=== PATIENT | male | born 1970 | race African-American/Black ===

== ENCOUNTER 2024-03-07 08:29 | Outpatient (AMB) | payer MEDICAID, SELFPAY ==
[2024-03-07 08:40] VITALS: BP 112/66; PULSE 67; BMI 36.4
--- NOTE | 2024-03-07 08:40 | A.OFFVIS_ITS ---
Vital Signs 03/07/24 08:40 Height 5 ft 6 in Weight 225 lb 8.526 oz BMI 36.4 BP 112/66 Blood Pressure Location Rt brachial Position Sitting Pulse 67 Pulse Source Pulse Oximeter Intake Visit Reasons: + CHARLES/lm Intake Note: New patient referred by PCP present today for positive CHARLES. C/O stiffness and swelling on hands. 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 Accompanied by: Self / Same As Patient Allergies No Known Allergies [No Known Allergies*] Allergy (Verified 03/07/24 08:43) Medication List - Last Reconciled 03/07/24 by No Andrade MD acetaminophen 500 mg PO Q6H PRN albuterol sulfate 90 mcg/actuation (Ventolin HFA) 2 puffs inhalation Q6H PRN ammonium lactate 12% topical BID aspirin 81 mg PO DAILY atorvastatin 20 mg PO DAILY baclofen 10 mg PO BID cholecalciferol (vitamin D3) 25 mcg PO DAILY clonazepam 1 mg PO TID empagliflozin (Jardiance) 10 mg PO QAM hydrochlorothiazide 25 mg PO DAILY hydroxyzine pamoate 50 mg PO BEDTIME PRN levocetirizine 5 mg PO QPM loratadine 10 mg PO DAILY melatonin 5 mg PO BEDTIME metoprolol succinate ER 25 mg PO DAILY naproxen 500 mg PO DAILY nicotine (polacrilex) mg PO omeprazole 20 mg PO BID prazosin 1 mg PO BEDTIME prednisone 3 mg PO DAILY pregabalin 150 mg PO BID HPI Comments Details: This is a 53-year-old male who presents for evaluation of diffuse pain. Patient stated that he started having joint pains in his hands, wrists, knees, elbows, shoulders. Associated with intermittent swelling. Significant stiffness especially in the middle of the night. Morning stiffness lasting hours. He was evaluated by Dr. Andrade. He saw Dr. Andrade for about a year, he was prescribed prednisone with good results, when prednisone was tapered he would have recurrent symptoms, he was restarted on prednisone but it did not work as well. I do not have records from Dr. Andrade. And he was started on pregabalin by his PCP. His CHARLES has been positive. Patient has any skin rashes, denies any fevers or weight loss. He has history of CAD s/p 2 stents. This was around 2015. He denies any history of DVT/PE. He is unaware of any family history of an autoimmune rheumatic disease. PFSH Medical History Presence of stent in coronary artery in patient with coronary artery disease Major depressive disorder, recurrent, unspecified Body mass index [BMI] 35.0-35.9, adult Other obesity Secondary hyperparathyroidism of renal origin Chronic kidney disease, stage 3 unspecified Nicotine dependence Cocaine abuse Male erectile disorder Inflammatory polyarthropathy Surgical History History of surgery of head History of hip surgery Family History Mother No known health problems Social History Alcohol intake: former Patient Tobacco Use Status: Current everyday Tobacco user Review of Systems Const Denies fever(s), Reports headache(s) and Denies weight loss ENT Reports headache(s) Card Reports dyspnea Resp Reports dyspnea and Reports wheezing Musc Reports arthralgias, Reports joint swelling and Reports stiffness Skin/Breast Reports unusual bruising Neuro Reports headache(s) Psych Reports abnormal sleep pattern, Reports anxiety and Reports depression Aller/Immun Reports wheezing Physical Exam Vital Signs: Last Vital Signs Pulse 67 03/07/24 08:40 BP 112/66 03/07/24 08:40 BMI result Body Mass Index 36.4 Const General: cooperative, healthy appearing and comfortable Nutritional Appearance: obese Orientation/consciousness: patient oriented x3 Limitations: no limitations HEENT Head: Yes normocephalic and Yes atraumatic Mouth: moist mucous membranes Resp Effort & Inspection: normal respiratory effort and able to speak in complete sentences Auscultation: clear to auscultation bilaterally Cardio Rate: regular rate Neuro General: patient oriented x3 Extrem Other: Diffuse puffiness of MCPs but, fingers, Mildly cool hands Few tender MTPs left foot Normal range of motion of shoulders but with stiffness Normal nailfold capillaroscopy Results Reviewed Results Reviewed: CHARLES [id number] speckled RF negative Assessment & Plan Assessment & Plan (1) CHARLES positive: Code(s): R76.8 - Other specified abnormal immunological findings in serum Category: Medical Plan: This is a 53-year-old male who presents for evaluation of a positive CHARLES in the setting of was joint pain responsive to prednisone. Clinical picture suspicious for an inflammatory arthritis. I will order comprehensive serology to screen for underlying autoimmune rheumatic disease. Check x-rays of involved joints. Follow-up in about 6 weeks Plan I spent 48 minutes reviewing patient's chart, evaluating patient, ordering diagnostic workup, counseling patient and documenting in the chart Orders: Orders CHARLES Reflex Titer and Pattern Today M32.9 - Systemic lupus erythematosus, unspecified Anti Extractable Nuclear Ag Today M32.9 - Systemic lupus erythematosus, unspecified Anti DNA DS Antibody Today M32.9 - Systemic lupus erythematosus, unspecified C Reactive Protein Today M32.9 - Systemic lupus erythematosus, unspecified DNA Double Stranded-Crithidia Today M32.9 - Systemic lupus erythematosus, unspecified Protein Creatinine Ratio, Ur Today M32.9 - Systemic lupus erythematosus, unspecified Sjogren's Antibodies Today M32.9 - Systemic lupus erythematosus, unspecified UA w Microscopic Today M32.9 - Systemic lupus erythematosus, unspecified Complete Blood Count Auto Diff Today I01.1 - Acute rheumatic endocarditis T Spot TB Today Z11.7 - Encounter for testing for latent tuberculosis infection HIV Ab/Ag Today Z11.59 - Encounter for screening for other viral diseases Cyclic Citrullinated Peptide Today I01.1 - Acute rheumatic endocarditis XR hand wrist RT Today M06.9 - Rheumatoid arthritis, unspecified XR foot LT min 3V Today M06.9 - Rheumatoid arthritis, unspecified XR foot RT min 3V Today M06.9 - Rheumatoid arthritis, unspecified Complement C3 Today M32.9 - Systemic lupus erythematosus, unspecified Complement C4 Today M32.9 - Systemic lupus erythematosus, unspecified Erythrocyte Sedimentation Rate Today M32.9 - Systemic lupus erythematosus, unspecified Comprehensive Met. Panel Today I01.1 - Acute rheumatic endocarditis Creatine Kinase Total Today I01.1 - Acute rheumatic endocarditis Hepatitis A,B,C Profile Today Z11.59 - Encounter for screening for other viral diseases Immunofixation Pnl, Serum Today I01.1 - Acute rheumatic endocarditis Protein Electrophoresis, Serum Today I01.1 - Acute rheumatic endocarditis Rheumatoid Factor Today I01.1 - Acute rheumatic endocarditis Scleroderma 12 Panel Today M34.9 - Systemic sclerosis, unspecified HLA B27 Today M45.9 - Ankylosing spondylitis of unspecified sites in spine XR hand wrist LT Today M06.9 - Rheumatoid arthritis, unspecified Coding Level of Care Code New Pt Level 4 (18437) Diagnoses CHARLES positive R76.8
== END 2024-03-07 09:08 | disposition home or self-care (01) ==
PROVIDERS: PCP Internal Medicine; Visit Provider Student in an Organized Health Care Education/Training Program
DX: R76.8 Other specified abnormal immunological findings in serum (principal)
CPT/HCPCS: 99204

== ENCOUNTER → 2024-03-07 08:29 | Outpatient (BNVA) | payer MEDICAID, SELFPAY | PROVIDERS: PCP Internal Medicine; Visit Provider Student in an Organized Health Care Education/Training Program | DX: M32.9 Systemic lupus erythematosus, unspecified (principal); M45.9 Ankylosing spondylitis of unspecified sites in spine; M06.9 Rheumatoid arthritis, unspecified; M34.9 Systemic sclerosis, unspecified; R76.8 Other specified abnormal immunological findings in serum; I01.1 Acute rheumatic endocarditis | CPT/HCPCS: 99202 ==

== ENCOUNTER 2024-08-17 11:02 | Emergency (ER) | payer MEDICAID, SELFPAY ==
--- NOTE | ~2024-08-17 | XR_ITS ---
CLINICAL HISTORY: necrotic right 3rd digit 3 views right 3rd digit including PA hand Comparison: None Findings: No fracture subluxations or dislocations. Joint intervals are preserved. No marginal erosions or overhanging osteophytes. No radiopaque foreign body. No soft tissue gas. Impression: 1. No periostitis or bony destruction demonstrated. No soft tissue gas. This document has been electronically signed by: Yaniv Linton MD on 08/17/2024 12:07:31
--- OUTSIDE RECORDS SUMMARY | 2024-08-17 11:05 | XMS_ITS | Patient Health Record ---
Author Organization [facility] Address [address], [place] [id number] Care Team Providers Care [employer] Tr[employer] Worker Name Role Phone Theo Regina Primary Care Provider [facility], Nursing Unavailable [phone] CasionXiomy soteloza Unavailable [phone] Allergies No Known Allergies Results Component Value Reference Range Notes ANTI-NUCLEAR ANTIBODY Reviewed date:09/26/2023 06:28:49 PM Interpretation:1:2560 Performing Lab: Notes/Report: Original Ordering Provider: REGINA VENEGAS MD [email or web address], a member of [address] [address] Plastic Design Applier - Anastasia Mendez MD ANTI-NUCLEAR ANTIBODY SCREEN POSITIVE NEGATIVE ANTI-NUCLEAR ANTIBODY TITER >=1:2560 <1:160 ANTI-NUCLEAR ANTIBODY PATTERN SPECKLED May be associated with SLE, Sjogren's syndrome and mixed connective tissue disorder (MCTD) CHARLES COMMENTS SPEC RECOMMENDATION: If clinical suspicion of SJogren's syndrome consider testing for anti-Ro/SSA and anti-La/SSB. If clinical suspicion of mixed connective tissue disease consider testing for anti-SKIN CARVER. CALCIUM Reviewed date:09/22/2023 09:55:06 AM Interpretation:Normal Performing Lab: Notes/Report: Original Ordering Provider: REGINA VENEGAS MD CALCIUM 9.2 8.5-10.5 mg/dL PTH RELATED PROTEIN Reviewed date:10/18/2023 12:49:10 PM Interpretation:Normal Performing Lab: Notes/Report: Original Ordering Provider: REGINA VENEGAS MD [email or web address], a member of [address] [address] [employer] Design Applier - Anastasia Mendez MD PTH RELATED PROTEIN 14 11-20 pg/mL This is a C-terminal PTH-RP assay. PTH-RP is useful in the differential diagnosis of hypercalcemia and levels may be elevated in patients with tumor-associated hypercalcemia. Elevated results may also be observed in patients with renal disease. This test was developed and its analytical performance characteristics have been determined by [facility]. It has not been cleared or approved by FDA. This assay has been validated pursuant to the CLIA regulations and is used for clinical purposes. Test Performed at: [facility] [address] [address] Giovanna Dodd MD, PhD, SARAH URINE TP CREAT RATIO Reviewed date:10/29/2023 02:21:42 PM Interpretation:TNP Performing Lab: Notes/Report: 09/24/23--SHL Original Ordering Provider: REGINA VENEGAS MD [email or web address], [place] [address] [employer]astic Design Applier - Anastasia Mendez MD CREATININE, RANDOM URINE TNP Testing not performed Reason: WRONG SPECIMEN TYPE SUBMITTED URINALYSIS Reviewed date:12/26/2023 05:09:56 PM Interpretation:Leukocytes Performing Lab: Notes/Report: Original Ordering Provider: REGINA VENEGAS MD [email or web address] [address] [employer]astic Design Applier - Anastasia Mendez MD GLUCOSE, (UA) NEGATIVE NEGATIVE mg/dL BILIRUBIN, URINE NEGATIVE NEGATIVE KETONE, URINE 15 NEGATIVE mg/dL SPECIFIC GRAVITY, URINE 1.011 1.003-1.030 BLOOD, URINE TRACE NEGATIVE PH, URINE 6.0 5.0-8.0 PROTEIN, URINE 100 <= TRACE mg/dl UROBILINOGEN, URINE 1.0 0.2-1.0 E.U./dL NITRITE, URINE POSITIVE NEGATIVE LEUKOCYTE ESTERASE, URINE MODERATE NEGATIVE RBC, URINE 3 0-4 /HPF WBC, URINE 78 0-4 /HPF EPITH CELLS, URINE 19 0-60 /LPF BACTERIA, URINE HEAVY NEGATIVE HYALINE CAST, URINE 3 0-3 /LPF ANTI-DNA Reviewed date:03/11/2024 03:00:02 PM Interpretation:Negative Performing Lab: Notes/Report: ANTI-DNA QUANTITATIVE 33 <200 IU/mL ANTI-DNA INTERPRETATION NEGATIVE NEGATIVE ANTI-NUCLEAR ANTIBODY Reviewed date:03/11/2024 05:22:15 PM Interpretation:>1:2560 Performing Lab: Notes/Report: Original Ordering Provider: REGINA VENEGAS MD ANTI-NUCLEAR ANTIBODY SCREEN POSITIVE NEGATIVE ANTI-NUCLEAR ANTIBODY TITER >=1:2560 <1:160 ANTI-NUCLEAR ANTIBODY PATTERN SPECKLED May be associated with SLE, Sjogren's syndrome and mixed connective tissue disorder (MCTD) CHARLES COMMENTS SPEC RECOMMENDATION: If clinical suspicion of SJogren's syndrome consider testing for anti-Ro/SSA and anti-La/SSB. If clinical suspicion of mixed connective tissue disease consider testing for anti-SKIN CARVER. SJOGRENS ANTIBODIES Reviewed date:03/11/2024 02:59:54 PM Interpretation:Negative Performing Lab: Notes/Report: SSA ANTIBODY QUANT 3 <20 UNITS SSA ANTIBODY NEGATIVE NEGATIVE SSB ANTIBODY QUANT 2 <20 UNITS SSB ANTIBODY NEGATIVE NEGATIVE COMPLEMENT C3 Reviewed date:03/07/2024 10:00:20 PM Interpretation:Normal Performing Lab: Notes/Report: COMPLEMENT C3 130 88-201 mg/dl COMPLEMENT C4 Reviewed date:03/07/2024 10:01:01 PM Interpretation:Normal Performing Lab: Notes/Report: COMPLEMENT C4 34 16-47 mg/dl CBC WITH AUTO DIFF Reviewed date:03/11/2024 02:59:36 PM Interpretation:WBC 3.7 Performing Lab: Notes/Report: WBC 3.7 4.8-10.8 x10-3/uL RBC 5.2 4.5-5.5 x10-6/uL HEMOGLOBIN 14.8 13.5-17.5 g/dL HEMATOCRIT 45.7 42-54 % MCV 88.2 79-98 fL MCH 28.6 27-32 pg MCHC 32.4 32-37 g/dL RDW 15.0 11-15 % PLT COUNT 199 130-400 x10-3/uL MEAN PLATELET VOLUME 12.2 7-11 fL NRBC % AUTO 0.0 <1 % NEUT % 63.1 LYMPH % 24.9 MONO % 8.0 EOS % 3.2 BASO % 0.5 IMMATURE GRANULOCYTES % 0.3 NRBC # AUTO 0.00 <0.1 x10-3/uL ABSOLUTE NEUT 2.36 1.5-7.0 x10-3/uL LYMPH # 0.93 1-5.0 x10-3/uL MONO # 0.30 0.2-1.0 x10-3/uL EOS # 0.12 0-0.5 x10-3/uL BASO # 0.02 0-0.2 x10-3/uL IMMATURE GRANULOCYTES # 0.01 0-0.03 x10-3/uL CYCLIC CITRULLINATED PEPTIDE Reviewed date:03/11/2024 03:00:34 PM Interpretation:Negative Performing Lab: Notes/Report: CCP NEGATIVE NEGATIVE CCP QUANT 6 <20 UNITS CREATINE KINASE (CK) Reviewed date:03/07/2024 09:57:50 PM Interpretation:Normal Performing Lab: Notes/Report: CREATINE KINASE (CK) 169 22-269 U/L COMPREHENSIVE METABOLIC PANE L Reviewed date:03/11/2024 05:22:33 PM Interpretation:creat 1.9 Performing Lab: Notes/Report: Original Ordering Provider: REGINA VENEGAS MD GLUCOSE 93 70-100 mg/dL Reference range applicable to fasting specimens only BUN 16 5-25 mg/dL CREAT 1.95 0.7-1.3 mg/dL GLOMERULAR FILTRATION RATE 41 >60 This eGFR result was calculated using the CKD-EPI 2020 Creatinine Equation SODIUM 140 135-145 mEq/L POTASSIUM 4.2 3.5-5.5 mmol/L CHLORIDE 109 96-110 mmol/L CO2 25 21-32 mmol/L ANION GAP 6 3-11 CALCIUM 9.7 8.5-10.5 mg/dL TOTAL PROTEIN 8.3 6.0-8.0 G/dL ALBUMIN 3.9 3.2-5.0 G/dL BILI,TOTAL 0.4 0.0-1.4 mg/dL SGOT 24 10-42 U/L SGPT 32 10-60 U/L ALK PHOS 91 42-121 U/L C-REACTIVE PROTEIN Reviewed date:03/11/2024 03:00:25 PM Interpretation:0.7 Performing Lab: Notes/Report: C-REACTIVE PROTEIN 0.70 <0.5 mg/dl RICHARD ANTIBODIES Reviewed date:03/11/2024 03:50:19 PM Interpretation:SKIN CARVER pos; SM borderline Performing Lab: Notes/Report: ANTI SM QUANT 21 <20 UNITS SM ANTIBODY POSITIVE NEGATIVE ANTI SM/SKIN CARVER QUANT 138 <20 UNITS SKIN CARVER ANTIBODY POSITIVE NEGATIVE SERUM ELECTROPHORESIS Reviewed date:03/11/2024 03:00:10 PM Interpretation:Normal Performing Lab: Notes/Report: ALBUMIN- EP 3.9 2.9-4.1 g/dL ALPHA 1 GLOBULIN 0.3 0.1-0.5 g/dL ALPHA 2 GLOBULIN 1.1 0.7-1.5 g/dL BETA GLOBULIN 1.3 0.7-1.5 g/dL GAMMA GLOBULIN 1.8 0.7-1.9 g/dL EP INTERPRETATION Y Essentially normal pattern. No M-Amor seen. Reviewed by Dr. Mendez ESR Reviewed date:03/11/2024 03:50:10 PM Interpretation:61 Performing Lab: Notes/Report: ESR 61 0-20 mm/hr HEPATITIS A B C PROFILE Reviewed date:03/07/2024 09:59:13 PM Interpretation:A/B immune Performing Lab: Notes/Report: HEPATITIS B SURFACE ANTIGEN NEGATIVE NEGATIVE Over the counter supplements containing high doses of biotin may interfere with this assay. If interference is suspected, patients shoud be retested after refraining from biotin supplements for 72 hours. HEPATITIS B SURFACE ANTIBODY POSITIVE NEGATIVE HEPATITIS B CORE ANTIBODY NEGATIVE NEGATIVE HEPATITIS C VIRUS DIAGNOSTIC NEGATIVE NEGATIVE HEPATITIS A ANTIBODY TOTAL POSITIVE NEGATIVE Over the counter supplements containing high doses of biotin may interfere with this assay. If interference is suspected, patients shoud be retested after refraining from biotin supplements for 72 hours. HIV 1 AND 2 ANTIBODY SCREEN Reviewed date:03/07/2024 09:57:39 PM Interpretation:Negative Performing Lab: Notes/Report: HIV 1 AND 2 SCREEN NEGATIVE NEGATIVE This assay is a 4th generation assay allowing for earlier detection of HIV infection by detecting the presence of the HIV-1 p24 antigen as well as the traditional antibodies to HIV type 1 (including group O) and type 2. Use of a 4th generation assay is the current CDC recommendation for HIV screening. HLA-B27 ANTIGEN Reviewed date:03/10/2024 07:34:34 PM Interpretation:Negative Performing Lab: Notes/Report: Original Ordering Provider: REGINA VENEGAS MD [email or web address], [place] [address] Plastic Design Applier - Anastasia Mendez MD HLA-B27 NEGATIVE Test performed at [facility], [facility] [place] [address] IMMUNOFIX SERUM Reviewed date:03/11/2024 02:59:46 PM Interpretation:Negative Performing Lab: Notes/Report: [email or web address], a member of [address] [address] [employer]astic [employer] Applier - Anastasia Mendez MD IMMUNOFIX SERUM NO MONOCLONAL No monoclon al immunoglobulins detected. PHOSPHORUS Reviewed date:03/07/2024 09:58:27 PM Interpretation:Normal Performing Lab: Notes/Report: PHOSPHORUS 2.8 2.5-4.5 mg/dL INTACT PTH Reviewed date:03/07/2024 09:59:40 PM Interpretation:Normal Performing Lab: Notes/Report: INTACT PTH 87 18-88 pg/mL SCL-70 (SCLERODERMA) ANTIBOD Y Reviewed date:03/11/2024 03:00:17 PM Interpretation:Negative Performing Lab: Notes/Report: SCL-70 (SCLERODERMA) ANTIBODY NEGATIVE NEGATIVE URINE TP CREAT RATIO Reviewed date:03/11/2024 03:50:01 PM Interpretation:1.2 Performing Lab: Notes/Report: CREATININE, RANDOM URINE 73 TOTAL PROTEIN, RANDOM URINE 88 TP CREAT RATIO 1.21 0-0.2 VITAMIN D, 25-HYDROXY Reviewed date:03/07/2024 10:00:09 PM Interpretation:Normal Performing Lab: Notes/Report: VITAMIN D, 25-HYDROXY 38 30-80 ng/mL QUANTIFERON(R)-TB GOLD PLUS, 1 TUBE Reviewed date:03/11/2024 02:47:29 PM Interpretation:Negative Performing Lab:NL2, [facility] [id number] Vikas Mallory Notes/Report: NON-FASTING QUANTIFERON(R)-TB GOLD PLUS, 1 TUBE NEGATIVE NEGATIVE Negative test result. M. tuberculosis complex infection unlikely. NIL 0.01 MITOGEN-NIL 9.37 TB1-NIL 0.00 TB2-NIL 0.01 The Nil tube value reflects the background interferon gamma immune response of the patient's blood sample. This value has been subtracted from the patient's displayed TB and Mitogen results. Lower than expected results with the Mitogen tube prevent false-negative Quantiferon readings by detecting a patient with a potential immune suppressive condition and/or suboptimal pre-analytical specimen handling. The TB1 Antigen tube is coated with the M. tuberculosis-specific antigens designed to elicit responses from TB antigen primed CD4+ helper T-lymphocytes. The TB2 Antigen tube is coated with the M. tuberculosis-specific antigens designed to elicit responses from TB antigen primed CD4+ helper and CD8+ cytotoxic T-lymphocytes. For additional information, please refer to https://education.Storehouse/faq/FAQ 204 (This link is being provided for informational/ educational purposes only.) URINALYSIS Reviewed date:05/09/2024 09:28:28 AM Interpretation:Abnormal Performing Lab: Notes/Report: Original Ordering Provider: YAMIL JACKSON APRN [email or web address], [place] [address] Plastic Design Applier - Anastasia Mendez MD GLUCOSE, (UA) >=1000 NEGATIVE mg/dL BILIRUBIN, URINE NEGATIVE NEGATIVE KETONE, URINE NEGATIVE NEGATIVE mg/dL SPECIFIC GRAVITY, URINE 1.014 1.003-1.030 BLOOD, URINE SMALL NEGATIVE PH, URINE 5.5 5.0-8.0 PROTEIN, URINE 100 <= TRACE mg/dl UROBILINOGEN, URINE 0.2 0.2-1.0 E.U./dL NITRITE, URINE POSITIVE NEGATIVE LEUKOCYTE ESTERASE, URINE LARGE NEGATIVE RBC, URINE 7 0-4 /HPF WBC, URINE 473 0-4 /HPF EPITH CELLS, URINE 15 0-60 /LPF BACTERIA, URINE HEAVY NEGATIVE HYALINE CAST, URINE 2 0-3 /LPF MICROALB/CREAT RATIO, RANDOM Reviewed date:05/09/2024 09:27:13 AM Interpretation:Abnormal Performing Lab: Notes/Report: Original Ordering Provider: YAMIL JACKSON APRN [email or web address], [place] [address] [employer]astic Design Applier - Anastasia Mendez MD MICROALBUMIN, RANDOM 239.0 0.0-29.0 mg/L MICROALB/CRE RATIO RANDOM 373.4 0.0-30.0 mg/G CREATININE, RANDOM URINE 64 URINE CULTURE Reviewed date:05/14/2024 03:04:54 PM Interpretation:+UTI Performing Lab: Notes/Report: Original Ordering Provider: YAMIL JACKSON APRN Specimen Source: URINE Collected: May 08, 2024 09:53 [email or web address], a member of [facility] Organism: ESCHERICHIA COLI [address] [place] [address] Antibiotics EFRAÍN Interpretation Plastic Design Applier - Anastasia Mendez MD TRIMETHOPRIM/SULFAMETHOXAZOLE <=20 Sensitive AMOXICILLIN/CLAVULANIC ACID 16 Intermediate AMPICILLIN/SULBACTAM >=32 Resistant CEFAZOLIN,URINE >=32 Resistant CEFOXITIN <=4 Sensitive CEFTAZIDIME <=0.5 Sensitive CEFTRIAXONE <=0.25 Sensitive CEFEPIME <=0.12 Sensitive CIPROFLOXACIN <=0.06 Sensitive GENTAMICIN <=1 Sensitive LEVOFLOXACIN <=0.12 Sensitive MEROPENEM <=0.25 Sensitive NITROFURANTOIN <=16 Sensitive AMIKACIN 2 Sensitive PIPERACILLIN/TAZOBACTAM 64 Resistant URINE CULTURE ESCHERICHIA COLI URINE CULTURE COLONY COUNT URINE CULTURE >100,000 BASIC METABOLIC PANEL (BMP) Reviewed date:01/25/2024 09:12:52 PM Interpretation:creat 1.87 Performing Lab: Notes/Report: Original Ordering Provider: REGINA VENEGAS MD GLUCOSE 113 70-100 mg/dL Reference range applicable to fasting specimens only BUN 21 5-25 mg/dL CREAT 1.87 0.7-1.3 mg/dL GLOMERULAR FILTRATION RATE 43 >60 This eGFR result was calculated using the CKD-EPI 2020 Creatinine Equation SODIUM 141 135-145 mEq/L POTASSIUM 4.1 3.5-5.5 mmol/L CHLORIDE 109 96-110 mmol/L CO2 25 21-32 mmol/L ANION GAP 7 3-11 CALCIUM 10.0 8.5-10.5 mg/dL HEPATITIS B SURFACE ANTIGEN Reviewed date:01/12/2024 08:04:57 AM Interpretation: Performing Lab: Notes/Report: [email or web address], a member of [facility] [address] Plastic Design Applier - Anastasia Mendez MD HEPATITIS B SURFACE ANTIGEN NEGATIVE NEGATIVE Over the counter supplements containing high doses of biotin may interfere with this assay. If interference is suspected, patients shoud be retested after refraining from biotin supplements for 72 hours. HEPATITIS A ANTIBODY IGM Reviewed date:03/07/2024 09:56:03 PM Interpretation:Negative Performing Lab: Notes/Report: [email or web address], [place] [address] Plastic Design Applier - Anastasia Mendez MD HEPATITIS A ANTIBODY IGM NEGATIVE NEGATIVE Over the counter supplements containing high doses of biotin may interfere with this assay. If interference is suspected, patients shoud be retested after refraining from biotin supplements for 72 hours. DANIELLE PATHOLOGIST REVIEW Reviewed date:03/12/2024 04:37:04 PM Interpretation: Performing Lab: Notes/Report: DANIELLE PATHOLOGIST REVIEW DR. MENDEZ IGA Reviewed date:03/07/2024 09:56:49 PM Interpretation:High Performing Lab: Notes/Report: IGA 516 61-348 mg/dL IGG Reviewed date:03/07/2024 09:56:34 PM Interpretation:High Performing Lab: Notes/Report: IGG 9004 249-3531 mg/dL IGM Reviewed date:03/07/2024 09:56:19 PM Interpretation:Normal Performing Lab: Notes/Report: IGM 80 23-259 mg/dL UA WITH CULTURE IF INDICATED Reviewed date:03/09/2024 02:21:30 PM Interpretation:Abnormal Performing Lab: Notes/Report: Original Ordering Provider: REGINA VENEGAS MD GLUCOSE, (UA) 500 NEGATIVE mg/dL BILIRUBIN, URINE NEGATIVE NEGATIVE KETONE, URINE NEGATIVE NEGATIVE mg/dL SPECIFIC GRAVITY, URINE 1.014 1.003-1.030 BLOOD, URINE SMALL NEGATIVE PH, URINE 6.5 5.0-8.0 PROTEIN, URINE 100 <= TRACE mg/dl UROBILINOGEN, URINE 1.0 0.2-1.0 E.U./dL NITRITE, URINE POSITIVE NEGATIVE LEUKOCYTE ESTERASE, URINE LARGE NEGATIVE RBC, URINE 11 0-4 /HPF WBC, URINE 989 0-4 /HPF EPITH CELLS, URINE 8 0-60 /LPF BACTERIA, URINE HEAVY NEGATIVE HYALINE CAST, URINE 1 0-3 /LPF YEAST, URINE PRESENT URINE CULTURE Reviewed date:03/11/2024 03:49:50 PM Interpretation:Positive e.coli Performing Lab: Notes/Report: Original Ordering Provider: REGINA VENEGAS MD Specimen Source: URINE,CLEAN CATCH Collected: Mar 07, 2024 11:39 [email or web address], a member of [facility] Organism: ESCHERICHIA COLI [address] [place] [address] Antibiotics EFRAÍN Interpretation Plastic Design Applier - Anastasia Mendez MD TRIMETHOPRIM/SULFAMETHOXAZOLE <=20 Sensitive AMOXICILLIN/CLAVULANIC ACID >=32 Resistant AMPICILLIN/SULBACTAM >=32 Resistant CEFAZOLIN,URINE 16 Sensitive CEFOXITIN <=4 Sensitive CEFTAZIDIME <=0.5 Sensitive CEFTRIAXONE <=0.25 Sensitive CEFEPIME <=0.12 Sensitive CIPROFLOXACIN <=0.06 Sensitive GENTAMICIN <=1 Sensitive LEVOFLOXACIN <=0.12 Sensitive MEROPENEM <=0.25 Sensitive NITROFURANTOIN <=16 Sensitive AMIKACIN 2 Sensitive PIPERACILLIN/TAZOBACTAM >=128 Resistant URINE CULTURE ESCHERICHIA COLI URINE CULTURE COLONY COUNT URINE CULTURE >100,000 CR Hand RT 3 views Reviewed date:06/15/2024 10:02:31 AM Interpretation:Normal Performing Lab: Notes/Report: Normal CBC Reviewed date:06/15/2024 10:03:55 AM Interpretation:Normal Performing Lab: Notes/Report: Normal HEMATOCRIT 42 HEMOGLOBIN 14.0 MCV 86 PLT COUNT 217 WBC 7.1 COMPREHENSIVE METABOLIC PANE L Reviewed date:06/15/2024 10:05:42 AM Interpretation:Creat 1.65 Performing Lab: Notes/Report: Creat 1.65 ALBUMIN 4.1 ALK PHOS 98 SGPT 31 BILI,TOTAL 0.3 BUN 22 CALCIUM 9.5 CHLORIDE 105 CO2 21 CREAT 1.6 GLUCOSE 85 POTASSIUM 4.1 SODIUM 140 TOTAL PROTEIN 8.4 ESR Reviewed date:06/15/2024 10:06:49 AM Interpretation:94 Performing Lab: Notes/Report: 94 ESR 94 C-REACTIVE PROTEIN Reviewed date:06/15/2024 10:07:26 AM Interpretation:1.3 Performing Lab: Notes/Report: 1.3 C-REACTIVE PROTEIN 1.3 LIPID PANEL WITH REFLEX TO D IRECT LDL Reviewed date:07/18/2024 06:11:55 PM Interpretation:Normal Performing Lab: Notes/Report: Cholesterol 115 0-200 mg/dL Triglycerides 125 0-150 mg/dL HDL 33 >=40 mg/dL LDL Calculated 57 0-100 mg/dL VLDL Cholesterol Enmanuel 25 Non HDL Chol. (LDL+VLDL) 82 <145 mg/dL Chol/HDL Ratio 3.5 0.0-4.4 HEMOGLOBIN A1C Reviewed date:07/19/2024 10:04:38 AM Interpretation:Normal Performing Lab: Notes/Report: Hemoglobin A1C 5.6 <6.5 % Mean Bld Glu Estim. 114 Reason For Referral Reason Arthritis TReat ent CEnter ;ast seen 2020; presistent CHARLES 1:2560 with small joint pain andstuiffness and inability to get off prednisone ATC will not see client, too many no shows. Referral Organization [facility] Referring Provider First Name Regina Referring Provider Last Name Theo Referring Provider Speciality Internal M edicine Referred Provider Specialty Rheumatology General Notes Sharon Campos 2023 12:05:55 PM >Faxed to Beth AVELAR Monica 09/27/2023 03:11:42 PM >ATC will nor see client, too many no shows., Regina Venegas 09/27/2023 04:31:22 PM >Can we find anyonenesle MAybe the [facility]?, Lilli Lehman 10/25/2023 10:31:50 AM > Notes faxed to [facility] [phone] Referral Priority Routine Reason presistent CHARLES 1:256 0 with small joint pain andstuiffness and inability to get off prednisone [facility], [address] [place] [address] Dr. Garcia 304 Referral Organization [facility] Referring Provider First Name Regina Referring Provider Last Name Theo Referring Provider Speciality Internal M edicine Referred Provider Demar Magana Referred Provider Specialty Rheumatology General Notes Lilli Lehman 02/2024 10:39:26 AM > notes faxed to [facility] [phone]. [facility]- [id number] VISITS, Sharon Campos 10/30/2023 11:03:36 AM >Client called with appt, Lilli Lehman 11/23/2023 03:49:58 PM > phone number not in service, Lilli Lehman 12/04/2023 01:13:32 PM > pt nos to his appt, Theo Regina 12/04/2023 01:25:32 PM >i think that is because he is i drug rehab. Can yopu tarck him down and, if so, beg [facility] rheum to gibve him another chance pleae?, Lilli Lehman 12/04/2023 01:29:05 PM > I called him and he did not answer and no voice mail set up, Regina Venegas 12/04/2023 02:42:10 PM >Pretty much the usual.ry him once more tomorrow and then we wait, Lilli Lehman 12/24/2023 02:58:25 PM > I rescheduled pt to 02/26 @1:30 with Nicky Schwab DOCK B[employer], Tania Quiroga 02/22/2024 11:01:37 AM > Pt. reminded of this apt., Mariah Arias 02/28/2024 10:25:54 AM >pt. reminded of this apt, Tania Quiroga 03/11/2024 09:00:26 AM > pt did attended waiting for noteKimber Katelyn 03/12/2024 10:43:50 AM > left vm requesting Kimber maxwell Katelyn 03/12/2024 01:16:43 PM > note received and put to scan Referral Priority Routine Referral Appointment Date 03/07/2024 Reason [facility]. [address] [place] [address] , [address] P: [phone] F: [phone] PAtient who had paronychiua (I think) drained at [facility] ER a ty wray abnd now has black eschar tip 3rd finger right. Does this need debridement? Circulation seems OK and I do not sense new fluid colection Referral Organization [facility] Referring Provider First Name Regina Referring Provider Last Name Theo Referring Provider Speciality Internal edicine Referred Provider Specialty Hand Surgery General Notes Nydia Ayala 09/2023 08:49:48 AM > Faxed to Plastics, Tania Quiroga 07/28/2024 10:33:15 AM > can you see if the note is completed yet, spoke with [phone] Briana from [facility] who called about pt he thinks he needs to be on antibiotic still but the [facility] office said he needs to just apply the cream Clinical Notes Regina Venegas 07/28 10:49:54 PM >No antibiotics needed. Dry gangrene - topoical silvadene. May take months. But if the area has turned to wet gangrene then they should see hu again (prior to the 08/25/24 foilow up date Referral Priority Routine Referral Appointment Date 07/21/[address] London Paz [address] [place] [address] P:[phone] F: [phone] Thick nails and callouses Referral Organization [facility] Referring Provider First Name Regina Referring Provider Last Name Theo Referring Provider Speciality Internal edicine Referred Provider London Paz Referred Provider Specialty Podiatry - S urgical Chiropody General Notes Nydia Ayala 12/2023 03:11:16 PM > Faxed to Dr. 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) Referral Organization [facility] Referring Provider First Name Regina Referring Provider Last Name Theo Referring Provider Speciality Internal M edicine Referred Provider Giancarlo [facility] General Notes Tania Quiroga 08/01/2024 12:49:32 PM > faxed to [facility] Referral Priority Routine Medications Medication SIG (Take, Route, Frequency, Duration) Notes Start Date End Date Status Aspirin Low Dose 81 mg TAKE 1 TABLET BY MOUTH ONCE DAILY orally once a day for 90 days Active nicotine 21 mg/24 hr 1 PATCH transdermally once a day for 28 days 07/18/2024 Active clonazePAM 1 mg 1 tab(s) orally 3 times a day for anxiety; on or after 03/06/24 for 15 days 07/18/2024 Active Jardiance 25 mg 1 tab(s) orally once a day (in the morning) for 30 days Active naproxen 500 mg 1 tab(s) orally once a day for 30 days Active prazosin 1 mg 1 cap(s) orally daily at bedtime for 90 days Active atorvastatin 20 mg 1 tab(s) orally once a day for 90 days Active omeprazole 20 mg 1 cap(s) orally twice a day for 30 days Active Lyrica 150 mg 1 cap(s) orally 2 times a day; for 30 days 07/18/2024 Active Nicotrol NS 10 mg/mL 1 spray(s) in each nostril every hour as needed for 30 days replaces nicotrol due to supply issues 03/07/2024 Not-Taking Vistaril pamoate 25 mg 2 caps orally keith ly at bedtime prn for 30 days Active predniSONE 5 mg 1 tab(s) orally once a day for 30 days Active Anoro Ellipta 62.5 mcg-25 mcg/inh 1 puff(s) inhaled once a day for 30 days 05/08/2024 Active hydroCHLOROthiazide 25 mg 1 tab(s) orall y once a day for 30 days 12/25/2023 Active Eye Itch Relief 0.025% INSTILL 1 DROP IN TO AFFECTED EYE(S) EVERY 8 HOURS for 21 Not-Taking Ventolin HFA 90 mcg/inh INHALE TWO PUFFS BY MOUTH INTO THE LUNGS EVERY 6 HOURS as NEEDED FOR WHEEZING inhaled every 6 hours for 30 days Active Vitamin D3 25 mcg 1 tab(s) orally once a day for 90 days Active ammonium lactate topical 12% 1 willie applied topically to calluses on feet 2 times a day for 30 days Not-Taking Metoprolol Succinate ER 50 mg TAKE 1 TABLET BY MOUTH ONCE DAILY orally once a day for 90 days note dose chnage Active Cane-adjustable as directed Use for walking support prn 10/24/2019 Active acetaminophen-codeine 300 mg-30 mg 1 tab(s) orally every 8 hours as needed for finger pain for 7 days 08/01/2024 Active nitroglycerin 0.4 mg 1 tab(s) sublingually every 5 minutes x 3; if pain not relieved, call 911 last used 01/2024

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
--- OUTSIDE RECORDS SUMMARY | 2024-08-17 11:05 | XMS_ITS ---
Author Organization [facility] Address [address] [place] [phone] Care Team Providers Care School Photographs Detailer Name Role Phone William Venegas Primary Care Provider [phone] Social History Sex Assigned At : Social History Observation Description Sex Assigned At Male Encounters Encounter Location Date Provider Diagnosis [address] [phone] 07/30/2024 William Venegas Plan Of Treatment Next Appt Details Provider Name:William Venegas, 09/12/2024 08:40:00 AM, [address] [place] [address], [phone], Progress Notes * Michael GALLARDODOB:1970 (54 yo M)Acc No.[id number]:07/30/2024 Patient:AimeeCRISSYMichael :1970???Age:53 Y???Sex:Male Address:[address] [place] [phone] * * Date:?
[2024-08-17 11:06] VITALS: BP 154/70; PULSE 85; RESP 18; TEMP 37.1; O2SAT 100; BMI 37.7
--- NOTE | 2024-08-17 11:06 | ED_ITS ---
HPI - General Adult General Chief complaint: Extremity Problem Stated complaint: Infected finger Time Seen by Provider: 08/17/24 13:07 Source: patient, RN notes reviewed and old records reviewed Mode of arrival: ambulatory History of Present Illness ED Provider: Clarisse Keller PA-C HPI narrative: 54-year-old male with a past medical history of polysubstance use, depression, obesity, CKD, hyperparathyroidism, inflammatory polyarthralgia, presenting to the ED complaining of black/necrotic right middle finger x 1 month. States initially had I&D, subsequently developed black finger, states has seen hand specialist who recommended waiting for finger to fall off or shaving area off. Patient presenting today for increasing pain. Denies recent injury, trauma, fall, fever, chills, drainage from area. Related Data Home Medications ?Medication ?Instructions ?Recorded ?Confirmed acetaminophen 500 mg tablet 500 mg PO Q6H PRN 03/07/24 03/07/24 albuterol sulfate 90 mcg/actuation 2 puff inhalation Q6H PRN wheezing 03/07/24 03/07/24 aerosol inhaler (Ventolin HFA) ammonium lactate 12 % lotion topical BID 03/07/24 03/07/24 aspirin 81 mg tablet,delayed 81 mg PO DAILY 03/07/24 03/07/24 release atorvastatin 20 mg tablet 20 mg PO DAILY 03/07/24 03/07/24 baclofen 10 mg tablet 10 mg PO BID 03/07/24 03/07/24 cholecalciferol (vitamin D3) 25 25 mcg PO DAILY 03/07/24 03/07/24 mcg (1,000 unit) tablet clonazepam 1 mg tablet 1 mg PO TID anxiety 03/07/24 03/07/24 empagliflozin 10 mg tablet 10 mg PO QAM 03/07/24 03/07/24 (Jardiance) hydrochlorothiazide 25 mg tablet 25 mg PO DAILY 03/07/24 03/07/24 hydroxyzine pamoate 25 mg capsule 50 mg PO BEDTIME PRN 03/07/24 03/07/24 levocetirizine 5 mg tablet 5 mg PO QPM 03/07/24 03/07/24 loratadine 10 mg tablet 10 mg PO DAILY 03/07/24 03/07/24 melatonin 5 mg tablet 5 mg PO BEDTIME 03/07/24 03/07/24 metoprolol succinate 25 mg 25 mg PO DAILY 03/07/24 03/07/24 tablet,extended release 24 hr naproxen 500 mg tablet 500 mg PO DAILY 03/07/24 03/07/24 nicotine (polacrilex) 2 mg buccal mg PO 03/07/24 03/07/24 lozenge omeprazole 20 mg capsule,delayed 20 mg PO BID 03/07/24 03/07/24 release prazosin 1 mg capsule 1 mg PO BEDTIME 03/07/24 03/07/24 prednisone 1 mg tablet 3 mg PO DAILY 03/07/24 03/07/24 pregabalin 150 mg capsule 150 mg PO BID 03/07/24 03/07/24 Allergies Allergy/AdvReac Type Severity Reaction Status Date / Time No Known Allergies Allergy Verified 08/17/24 11:12 [No Known Allergies*] Review of Systems 2 Review of Systems: Yes all other systems are reviewed and are negative Constitutional: Constitutional: Reports as per [facility] Past Medical History Attestation statement: The following information was validated with the patient. Source: old records reviewed Medical History Presence of stent in coronary artery in patient with coronary artery disease Major depressive disorder, recurrent, unspecified Body mass index [BMI] 35.0-35.9, adult Other obesity Secondary hyperparathyroidism of renal origin Chronic kidney disease, stage 3 unspecified Nicotine dependence Cocaine abuse Male erectile disorder Inflammatory polyarthropathy Surgical History History of surgery of head History of hip surgery Family History Family History Mother No known health problems Social History Social History Alcohol intake: former Patient Tobacco Use Status: Current everyday Tobacco user Advance Directives: No Advance Directives Information Provided: No Physical Exam ED Vital Signs: Vital Signs - 24 hr 08/17/24 11:06 08/17/24 13:41 Temperature 98.8 F 98.4 F Pulse Rate 85 84 Respiratory Rate 18 16 Blood Pressure 154/70 H 154/88 H Pulse Oximetry 100 98 Oxygen Delivery Method Room Air Room Air BMI result Body Mass Index 37.7 Const General: cooperative, healthy appearing and no acute distress Orientation/consciousness: patient oriented x3 Limitations: no limitations HENMT Head: Yes normal to inspection and Yes atraumatic Ears: hearing grossly normal bilaterally General nose exam: Normal external nose present Face and sinus: Yes normal facial exam Eyes General: appearance normal, both eyes and all related structures EOM: EOMs intact bilaterally Neck Neck: Yes normal visual inspection and Yes no meningeal signs Resp Effort & Inspection: normal respiratory effort and no respiratory distress Cardio Rate: regular rate Skin Rashes: no rashes Neuro General: patient oriented x3, tone normal and no meningeal signs Cranial nerves: Yes CN's II-XII intact bilaterally Gait exam (Neuro): Normal gait present Extrem Other: Please refer to images above. Distal right 3rd digit with necrosis. No erythema. Nontender. No fluctuance or induration. Course Course Course Narrative: This is a Rapid Medical Examination (RME) performed by Seema Marmolejo PA-C in triage. Full HPI, ROS, assessment and treatment plan per primary provider in the Main ED. 54 yo male hx of polysubstance abuse, stage 3 CKD here for eval of of necrotic finger x months since I&D performed at [facility]. he has been in a program for approximately 1 month and has been unable to leave the program to seek medical attention. however, he does state that he has already followed up with hand specialist and multiple emergency departments - plan for the finger is unclear. Plan: labs, XR -no leukocytosis. Creatinine 1.9, BUN 28 > Known CKD however no prior labs to compare 3 views right 3rd digit including PA hand Impression: 1. No periostitis or bony destruction demonstrated. No soft tissue gas. > discussed with patient on this advertising copywriter's evaluation need to discuss with hand specialist/orthopedics, however recommendation is for admission. Patient states he will not do anything until he speaks with his doctor and his hand specialist. Patient worried about his program where he resides and states he needs to leave the emergency department by 02:00 o'clock. Patient is A&O x3, competent to make his own decisions, will sign out AMA. Risks discussed Medical Decision Making Medical Decision Making MDM Narrative: 54-year-old male with a past medical history of polysubstance use, depression, obesity, CKD, hyperparathyroidism, inflammatory polyarthralgia, presenting to the ED complaining of black/necrotic right middle finger x 1 month. On exam vital signs stable, NAD, please refer to images above of necrotic right middle finger. Concern for osteomyelitis and necrosis. No evidence of acute cellulitis. Plan: Labs and x-ray ordered in triage Please refer to course for remaining clinical decision making, interpretation of labs/imaging results, and discussions with consultants and/or family members. Differential Diagnosis Differential Diagnoses: The differential diagnosis associated with the presentation includes As above Admission/Observation Consideration of admission/observation: Escalation of care including admission/observation considered Lab Data MDM Lab Attestation statement: I reviewed the patient's lab results. 08/17/24 11:44 08/17/24 11:44 Labs: Lab Results 08/17/24 Range/Units 11:44 WBC 6.3 (4.8-10.8) X10*3/uL RBC 4.99 (4.60-5.80) X10*6/uL Hgb 14.2 (14.0-18.0) g/dl Hct 41.8 L (42.0-52.0) % MCV 83.8 (80.0-98.0) fL MCH 28.5 (27.0-33.0) pg MCHC 34.0 (31.0-36.0) g/dl RDW 14.6 (11.0-16.0) % Plt Count 245 (160-400) X10*3/uL MPV 10.3 (9.4-12.4) fL Immature Gran % (Auto) 0.3 (0.0-0.4) % Neut % (Auto) 75.3 H (45-73) % Lymph % (Auto) 16.1 L (20-40) % [place] % (Auto) 4.8 (2-11) % Eos % (Auto) 3.0 (0-4) % Baso % (Auto) 0.5 (0-2) % Lymph # (Auto) 1.0 L (1.2-4.9) X10*3/uL [place] # (Auto) 0.3 (0.1-1.2) X10*3/uL Eos # (Auto) 0.2 (0.0-0.4) X10*3/uL Baso # (Auto) 0.0 (0.0-0.2) X10*3/uL Abs Immat Gran (auto) 0.02 (0.00-0.03) X10*3/uL Absolute Neuts (auto) 4.7 (2.0-8.3) x10*3/uL Absolute Nucleated RBC 0.000 (0.0-0.012) X10*3/uL Nucleated RBC % (auto) 0.0 (0.0-0.2) /100WBC Sodium 140 (135-145) mmol/L Potassium 3.7 (3.3-5.1) mmol/L Chloride 106 (96-108) mmol/L Carbon Dioxide 22 (22-29) mmol/L Anion Gap 16 (12-20) BUN 28 H (9-16) mg/dL Creatinine 1.92 H (0.5-1.4) mg/dL Estim Creat Clear Calc 50.7 Estimated GFR 37 Random Glucose 103 (60-115) mg/dL Calcium 9.4 (8.4-10.2) mg/dL Total Bilirubin 0.2 (0.0-1.0) mg/dL AST 41 H (5-37) U/L ALT 27 (0-40) U/L Alkaline Phosphatase 73 (39-117) U/L C-Reactive Protein 0.53 H (< or = 0.50) mg/dL Total Protein 8.9 H (6.5-8.0) g/dL Albumin 4.2 (3.5-5.0) g/dL Independent Interpretation I performed an independent interpretation of an: Plain X-Ray Radiology Impression Discussion of test interpretation with radiology: I have reviewed the radiologist's reading. External Record Review External record reviewed: Inpatient record, Office record, Outpatient record, Prior outpatient labs, Prior outpatient radiology, Primary care record and Outside ED record Tests considered The following testing was considered but not selected: As above Prescription Management I considered prescription management with: Pain Medication and Antibiotic Chronic Conditions Patient?s care impacted by: Other Social Determinants Patient?s care significantly limited by Social Determinants of Health including: Inadequate housing, Low income, Alcoholism and drug addiction in family, Problems related to primary support group, Unemployment, Problems related to employment and Other Social Determinant of Health Discharge Plan Discharge Clinical Impression: Necrosis of finger Patient Disposition: Left Against Medical Advice Instructions: Gangrene (DC) Additional Instructions: You are leaving against medical advice. You are always welcome to return to the emergency department Your fingers necrotic. You need to follow-up with a hand specialist Prescriptions: No Action acetaminophen 500 mg tablet 500 mg PO Q6H PRN Jardiance 10 mg tablet 10 mg PO QAM prazosin 1 mg capsule 1 mg PO BEDTIME levocetirizine 5 mg tablet 5 mg PO QPM pregabalin 150 mg capsule 150 mg PO BID metoprolol succinate 25 mg tablet extended release 24 hr 25 mg PO DAILY aspirin 81 mg tablet,delayed release (DR/EC) 81 mg PO DAILY melatonin 5 mg tablet 5 mg PO BEDTIME hydroxyzine pamoate 25 mg capsule 50 mg PO BEDTIME PRN naproxen 500 mg tablet 500 mg PO DAILY clonazepam 1 mg tablet 1 mg PO TID cholecalciferol (vitamin D3) 25 mcg (1,000 unit) tablet 25 mcg PO DAILY albuterol sulfate [Ventolin HFA] 90 mcg/actuation HFA aerosol inhaler 2 puff inhalation Q6H PRN (Reason: wheezing) atorvastatin 20 mg tablet 20 mg PO DAILY omeprazole 20 mg capsule,delayed release(DR/EC) 20 mg PO BID nicotine (polacrilex) 2 mg lozenge PO prednisone 1 mg tablet 3 mg PO DAILY loratadine 10 mg tablet 10 mg PO DAILY baclofen 10 mg tablet 10 mg PO BID ammonium lactate 12 % lotion topical BID hydrochlorothiazide 25 mg tablet 25 mg PO DAILY Referrals: [facility] [Provider Group] - 1 day Stand Alone Forms: Against Medical Advice Print Language: Montenegrin
[2024-08-17 11:48] LABS: MANUAL DIFF FLAG NO
[2024-08-17 11:49] LABS: Basophils Percent Auto 0.5 % (0-2); Eosinophils Absolute Auto 0.2 X10*3/uL (0.0-0.4); Hematocrit 41.8 % (42.0-52.0); Hemoglobin 14.2 g/dl (14.0-18.0); Imm Gran Abs Auto 0.02 X10*3/uL (0.00-0.03); Imm Gran Pct Auto 0.3 % (0.0-0.4); Lymphocytes Percent Auto 16.1 % (20-40); Mean Corpuscular Hemoglobin 28.5 pg (27.0-33.0); Mean Corpuscular Volume 83.8 fL (80.0-98.0); Mean Platelet Volume 10.3 fL (9.4-12.4); Monocytes Absolute Auto 0.3 X10*3/uL (0.1-1.2); Monocytes Percent Auto 4.8 % (2-11); Neutrophils Absolute Auto 4.7 x10*3/uL (2.0-8.3); Neutrophils Percent Auto 75.3 % (45-73); Platelet Count 245 X10*3/uL (160-400); Red Blood Count 4.99 X10*6/uL (4.60-5.80); Red Cell Distribution Width 14.6 % (11.0-16.0); White Blood Count 6.3 X10*3/uL (4.8-10.8)
[2024-08-17 12:06] LABS: Alanine Aminotransferase 27 U/L (0-40); Albumin Level 4.2 g/dL (3.5-5.0); Alkaline Phosphatase 73 U/L (39-117); Anion Gap 16 (12-20); Aspartate Amino Transferase 41 U/L (5-37); Bilirubin Total 0.2 mg/dL (0.0-1.0); Blood Urea Nitrogen 28 mg/dL (9-16); C Reactive Protein 0.53 mg/dL (< or = 0.50); Calcium 9.4 mg/dL (8.4-10.2); Carbon Dioxide 22 mmol/L (22-29); Chloride 106 mmol/L (96-108); Creatinine Clr Calc Pharmacy 50.7; Estimated Glomerular Filt Rate 37; Glucose Random 103 mg/dL (60-115); Potassium 3.7 mmol/L (3.3-5.1); Sodium 140 mmol/L (135-145); Total Protein 8.9 g/dL (6.5-8.0)
[2024-08-17 13:41] VITALS: BP 154/88; PULSE 84; RESP 16; TEMP 36.9; O2SAT 98
[2024-08-17 14:09] VITALS: BP 154/88; PULSE 84; RESP 16; TEMP 36.9; O2SAT 98
== END 2024-08-17 14:10 | disposition left against medical advice (07) ==
PROVIDERS: Physician Assistant; Physician Assistant Medical; Emergency Provider Emergency Medicine; PCP Internal Medicine
DX: L08.89 Other specified local infections of the skin and subcutaneous tissue (principal); M79.644 Pain in right finger(s); Z79.899 Other long term (current) drug therapy
CPT/HCPCS: 36415; 73140; 80053; 85025; 85652; 86140; 99283

== ENCOUNTER → 2024-08-17 11:10 | Outpatient (BNV) | payer MEDICAID, SELFPAY | PROVIDERS: PCP Internal Medicine; Visit Provider Radiology Diagnostic Radiology | DX: M87.04 Idiopathic aseptic necrosis of hand and fingers (principal) | CPT/HCPCS: 73140 ==